=== PATIENT | female | born 1960 | race Two or more races ===

== ENCOUNTER 2017-06-01 11:47 | Inpatient (IN) | payer MEDICAID ==
[~2017-06-01] VITALS: Ht 162.6 cm; Wt 76.5 kg
[2017-06-01 12:51] LABS: Basophils # (auto) 0 uL; Basophils % (auto) 0.4 % (0.0-2.0); CONDITION Y; Eosinophils # (auto) 0.1 uL; Eosinophils % (auto) 1.9 % (0.0-7.0); Hematocrit 37.9 % (36.0-46.0); Lymphocytes % (auto) 31.2 % (10.0-50.0); Mean Corpuscular Hemoglobin 32.1 pg (28.0-32.0); Mean Corpuscular Hgb Conc. 34.4 g/dL (32.0-36.0); Mean Corpuscular Volume 93.2 fL (80.0-100.0); Mean Platelet Volume 10.2 fL (7.4-10.4); Monocytes # (auto) 0.6 uL; Neutrophils # (auto) 3.6 uL; Neutrophils % (auto) 57.5 % (37.0-80.0); Platelet Count (auto) 182 10^3/uL (140-450); White Blood Cell 6.3 10^3/uL (4.4-10.8)
[2017-06-01 13:18] LABS: Alkaline Phosphatase 81 U/L (45-117); Anion Gap 9 (5-15); Aspartate Aminotransferase 14 U/L (15-37); BUN/Creatinine Ratio 14.8; Bilirubin, Total 0.4 mg/dL (0.2-1.0); Blood Urea Nitrogen 13 mg/dL (7-18); Carbon Dioxide 22 mmol/L (21-32); Chloride 111 mmol/L (98-107); GFR African American 85 mL/min; GFR Non-African American 70 mL/min; Glucose 103 mg/dL (74-106); Magnesium 2.7 mg/dL (1.6-2.6); Potassium 3.7 mmol/L (3.5-5.1); Sodium 142 mmol/L (136-145); Total Protein 7.2 g/dL (6.4-8.2)
[2017-06-01] MEDS ORDERED: SODIUM CHLORIDE 0.9% 1,000 ML IV ONE ×2 (20:52)
[2017-06-01] MEDS ORDERED: KETOROLAC TROMETH 30 MG/ML 1ML VIAL IV ONE (21:00)
[2017-06-01] MEDS ORDERED: IOHEXOL 300 MG/ML 100ML BOTTLE IJ ONE (21:21)
[2017-06-01 22:22] LABS: Urine Bilirubin Negative (Negative); Urine Blood Negative /uL (Negative); Urine Color Yellow (Yellow); Urine Glucose Normal (Normal); Urine Ketone Negative (Negative); Urine Nitrite Negative (Negative); Urine RBC 5 /hpf (0 - 4); Urine Squamous Epithelial Cell FEW /hpf (<5); Urine Urobilinogen Normal (Negative); Urine pH 7.5 (5.0-8.0)
[2017-06-02] MEDS ORDERED: MORPHINE SULF INJ 2 MG/ML SYRINGE 1ML IV PRN (00:30)
[2017-06-02] MEDS ORDERED: cefTRIAXone 1GM/50ML D5W 50 ML IV ONE (00:30)
[2017-06-02] MEDS ORDERED: ONDANSETRON HCL 4 MG/2 ML VIAL IV PRN (00:30)
[2017-06-02] MEDS ORDERED: ACETAMINOPHEN 500 MG TAB PO PRN (00:30)
[2017-06-02] MEDS: LISINOPRIL 20 MG TAB PO SCH (08:18)
[2017-06-02] MEDS: cefTRIAXone 1GM/50ML D5W 50 ML IV SCH (08:18)
[2017-06-02 12:03] VITALS: BP 151/83
[2017-06-02] MEDS: HYDROcodone-ACET 5/325MG TAB PO PRN (20:43)
[2017-06-02] MEDS ORDERED: ATORVASTATIN 20 MG TAB PO SCH (22:00)
[2017-06-02 22:55] VITALS: BP 144/86
[2017-06-03 04:58] VITALS: BP 111/67
[2017-06-03 05:06] VITALS: BP 115/64
[2017-06-03 05:57] LABS: Basophils # (auto) 0 uL; Basophils % (auto) 0.3 % (0.0-2.0); Eosinophils # (auto) 0.2 uL; Eosinophils % (auto) 3.5 % (0.0-7.0); Hematocrit 39.6 % (36.0-46.0); Hemoglobin 13.6 g/dL (12.2-16.2); Lymphocytes % (auto) 30.5 % (10.0-50.0); Mean Corpuscular Hgb Conc. 34.2 g/dL (32.0-36.0); Mean Corpuscular Volume 93.3 fL (80.0-100.0); Mean Platelet Volume 9.7 fL (7.4-10.4); Monocytes # (auto) 0.7 uL; Monocytes % (auto) 10.9 % (0.0-12.0); Neutrophils # (auto) 3.6 uL; Neutrophils % (auto) 54.8 % (37.0-80.0); Nucleated Red Blood Cells % 0.1 %; Platelet Count (auto) 157 10^3/uL (140-450); Red Cell Distribution Width 12.9 % (11.6-16.0); White Blood Cell 6.6 10^3/uL (4.4-10.8)
[2017-06-03 06:03] LABS: Partial Thromboplastin Time 26.7 sec (22.64-33.71); Prothrombin Time 10.9 sec (9.37-12.3)
[2017-06-03 06:28] LABS: Albumin 3.8 g/dL (3.4-5.0); BUN/Creatinine Ratio 13.3; Bilirubin, Total 0.6 mg/dL (0.2-1.0); Potassium 3.5 mmol/L (3.5-5.1); Total Protein 7.1 g/dL (6.4-8.2)
[2017-06-03] MEDS: HYDROcodone-ACET 5/325MG TAB PO PRN (08:38)
[2017-06-03] MEDS: LISINOPRIL 20 MG TAB PO SCH (08:56)
[2017-06-03] MEDS: cefTRIAXone 1GM/50ML D5W 50 ML IV SCH (08:56)
[2017-06-03 09:00] VITALS: BP 129/89
[2017-06-03 12:45] VITALS: BP 136/74
[2017-06-03 13:00] VITALS: BP 136/74
== END 2017-06-03 14:10 | disposition home or self-care (01) | DRG 243 ==
LOC: ER 11:47 → OVERFLOW 11:48 → TELE-E-ADS 06-02 11:45 → EAST 06-02 17:54
PROVIDERS: ADMIT Nurse Practitioner Family; ATTEND Internal Medicine
DX: K21.9 Gastro-esophageal reflux disease without esophagitis (principal); B02.29 Other postherpetic nervous system involvement; E11.22 Type 2 diabetes mellitus with diabetic chronic kidney disease; I12.9 Hypertensive chronic kidney disease with stage 1 through stage 4 chronic kidney disease, or unspecified chronic kidney disease; N39.0 Urinary tract infection, site not specified; E78.5 Hyperlipidemia, unspecified; F17.200 Nicotine dependence, unspecified, uncomplicated; K57.30 Diverticulosis of large intestine without perforation or abscess without bleeding; F32.9 Major depressive disorder, single episode, unspecified; K80.20 Calculus of gallbladder without cholecystitis without obstruction; B02.9 Zoster without complications; Z79.84 Long term (current) use of oral hypoglycemic drugs; N18.9 Chronic kidney disease, unspecified
CPT/HCPCS: 36415; 74177; 76705; 78226; 80053; 81001; 83690; 83735; 84484; 85025; 85610; 85730; 93005; 96361; 96365; 96375; J0696; J1885

== ENCOUNTER → 2020-10-12 | Outpatient (CLI) | payer MEDICAID | END | disposition home or self-care (01) | LOC: Rad HDHVI 09:35 | PROVIDERS: ATTEND Internal Medicine Cardiovascular Disease | DX: R06.02 Shortness of breath (principal); R07.89 Other chest pain; R00.2 Palpitations; Z95.1 Presence of aortocoronary bypass graft | CPT/HCPCS: 93306 ==